=== PATIENT | male | born 1985 | race American Indian/Alaskan Native ===

== ENCOUNTER 2017-08-20 00:37 | Inpatient (IN) | payer MEDICARE ==
--- NOTE | 2017-08-20 01:46 | XRay Report ---
FINAL REPORT EXAM: XR CHEST ROUTINE 2V HISTORY: Shortness of breath COMPARISON: February 2016. FINDINGS:: Frontal and lateral views of the chest obtained. Heart mildly enlarged similar prior study. Patchy interstitial opacities at the left lung base concerning for asymmetric edema versus pneumonia. Mild prominence of the pulmonary vasculature centrally. No gross effusion or pneumothorax. Tiny calcified granuloma right upper lung. IMPRESSION:: Patchy interstitial densities at the left lung base concerning for asymmetric edema versus pneumonia.
[2017-08-20 02:16] LABS: Basophils % (Auto) 0.8 % (0.0-1.8); Hematocrit 29.1 % (35.5-45.6); Hemoglobin 9.6 gm/dl (11.8-15.2); Mean Corpuscular HGB Conc 33 % (32-34); Mean Corpuscular Hemoglobin 34 pg (28-32); Mean Corpuscular Volume 104 fl (84-94); Platelet Count 375 K/mm3 (140-440); White Blood Count 12.5 K/mm3 (4.5-11.0)
[2017-08-20 02:22] LABS: Chloride 91.5 mmol/L (98-107); Potassium 4.5 mmol/L (3.6-5.0)
--- NOTE | 2017-08-20 08:38 | Emergency Department Report ---
HPI - General Chief Complaint: Dyspnea/Respdistress Time Seen by Provider: 08/20/17 08:21 - HPI HPI: This is a 31-year-old -[place] male who presents to the emergency department with the need for dialysis. He says that he usually gets dialysis on Saturday, Saturday, Saturday and last had it here on Saturday. The lesion has been coming to the hospital for dialysis as he says he does not have a dialysis clinic. He says he is followed by Dr. foote. He has been end-stage renal disease on dialysis for the past 1.5 years. He has access in the right groin. He also has a past medical history of diabetes, hypertension. He denies any shortness of breath at rest but sometimes will have it at exertion. He denies any chest pain, fever, cough, nausea, vomiting. He has not taken anything for his symptoms prior to presentation. No recent travel or sick contacts at home. ED Past Medical Hx - Past Medical History Previous Medical History?: Yes Hx Hypertension: Yes Hx Congestive Heart Failure: No Hx Diabetes: Yes Hx Renal Disease: Yes Hx Kidney Stones: No Hx Psychiatric Treatment: Yes (Schizophrenic) Hx Asthma: No Hx COPD: No Hx HIV: No Additional medical history: Hemodialysis - Surgical History Past Surgical History?: Yes Additional Surgical History: knee surgery, tonsils removed, vas cath, graft in rt. leg - Social History Smoking Status: Never Smoker Substance Use Type: None - Medications Home Medications: Home Medications Medication Instructions Recorded Confirmed Last Taken Type Insulin Regular, Human [Novolin R] 12 - 30 units SC TIDWM #1 vial 08/20/17 Unknown Rx NIFEdipine XL [Procardia Xl] 60 mg PO QDAY #30 tablet 08/20/17 Unknown Rx Valsartan [Diovan] 320 mg PO QDAY #30 tablet 08/20/17 Unknown Rx ED Review of Systems ROS: Stated complaint: NEEDS DIALYSIS Other details as noted in HPI Comment: All other systems reviewed and negative Constitutional: denies: chills, fever Eyes: denies: eye pain, eye discharge, vision change ENT: denies: ear pain, throat pain Respiratory: SOB with exertion. denies: shortness of breath Cardiovascular: denies: chest pain, palpitations Gastrointestinal: denies: abdominal pain, nausea, diarrhea Genitourinary: denies: urgency, dysuria Musculoskeletal: denies: back pain, joint swelling, arthralgia Skin: denies: rash, lesions Neurological: denies: headache, weakness, paresthesias Physical Exam - Physical Exam Vital Signs: Vital Signs 08/20/17 08/20/17 00:48 01:17 Temperature 98.4 F 98.4 F Pulse Rate 116 H 117 H Respiratory 18 18 Rate Blood Pressure 182/114 182/114 O2 Sat by Pulse 100 99 Oximetry Physical Exam: GENERAL: The patient is well-developed well-nourished. HENT: Normocephalic. Atraumatic. Patient has moist mucous membranes. EYES: Extraocular motions are intact. Pupils equal reactive to light bilaterally. NECK: Supple. Trachea is midline. CHEST/LUNGS: Mild coarse breath sounds throughout the chest. No tachypnea or accessory muscle use. There is no respiratory distress noted. HEART/CARDIOVASCULAR: Regular. There is mild tachycardia. There is no gallop rub or murmur. ABDOMEN: Abdomen is soft, nontender. Patient has normal bowel sounds. There is no abdominal distention. SKIN: Skin is warm and dry. NEURO: The patient is awake, alert, and oriented. The patient is cooperative. The patient has no focal neurologic deficits. The patient has normal speech. MUSCULOSKELETAL: There is no tenderness or deformity. There is no limitation range of motion. There is no evidence of acute injury. 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 stover, who has agreed to come and evaluate the patient for dialysis. 08/20/17 08:37 ED Medical Decision Making - Lab Data Result diagrams: 08/20/17 01:44 08/20/17 01:44 - EKG Data -: EKG Interpreted by Co EKG shows normal: sinus rhythm, axis (left axis deviation), intervals ( prolonged QTC), QRS complexes (LVH), ST-T waves Rate: tachycardia (104 bpm) - EKG Data When compared to previous EKG there are: previous EKG unavailable Interpretation: other (sinus tachycardia, prolonged QTC, LVH) - Radiology Data Radiology results: report reviewed EXAM: XR CHEST ROUTINE 2V HISTORY: Shortness of breath COMPARISON: February 2016. FINDINGS:: Frontal and lateral views of the chest obtained. Heart mildly enlarged similar prior study. Patchy interstitial opacities at the left lung base concerning for asymmetric edema versus pneumonia. Mild prominence of the pulmonary vasculature centrally. No gross effusion or pneumothorax. Tiny calcified granuloma right upper lung. IMPRESSION:: Patchy interstitial densities at the left lung base concerning for asymmetric edema versus pneumonia. - Medical Decision Making The patient presented for dialysis. He does appear to require it with some elevated BUN/creatinine and creatinine levels but there is no hyperkalemia. Chest x-ray does not show any significant volume overload. Nephrology was contacted and agrees to do dialysis. The patient was admitted to the hospitalist service. - Differential Diagnosis CHF, hyperkalemia, asthma, pneumonia Critical Care Time: No Critical care attestation.: If time is entered above; I have spent that time in minutes in the direct care of this critically ill patient, excluding procedure time. ED Disposition Clinical Impression: Hypertensive urgency, End-stage renal disease needing dialysis Disposition: OP ADMIT IP TO THIS HOSP Is pt being admited?: Yes Condition: Stable Time of Disposition: 14:24
[2017-08-20] MEDS ORDERED: NACL 0.9% 100 ML IV PRN (09:14)
--- NOTE | 2017-08-20 09:14 | Consultation ---
History of Present Illness - Reason for Consult Consult date: 08/20/17 end stage renal disease, other (volume overload) - History of Present Illness The patient is a 31 YO AAM with history significant for HTN, Type 1 DM, Diastolic CHF(EF 55%), ESRD on HD(M,W,F), Anemia, Schizophrenia and medical non- compliance presented to ED for hemodialysis treatment. Patient had multiple admissions at [facility] for hemodialysis treatment. He was last dialyzed on 08/16/17 in the hospital. He has some shortness of breath. His regular outpatient hemodialysis center is at [facility] in [place] and his primary [facility] [employer] [facility] is . Inspite of counseling multiple times he doesn't want to go to the outpatient dialysis unit. He wants to switch to PD and has an appt with tomorrow. Patient denies any N, V, D, abd pain, cp , orthopnea, PND or leg swelling. Past History Past Medical History: anemia, diabetes, dialysis, ESRD, heart failure, hypertension Medications and Allergies Allergies Allergy/AdvReac Type Severity Reaction Status Date / Time Penicillins Allergy Unknown Verified 08/08/17 07:32 Home Medications Medication Instructions Recorded Confirmed Last Taken Type Insulin Regular, Human [Novolin R] 12 - 30 units SC TIDWM 08/02/17 08/20/17 1 Day Ago History Metoprolol [Lopressor TAB] 50 mg PO BID 08/02/17 08/20/17 1 Day Ago History hydrALAZINE [Apresoline TAB] 100 mg PO BID 08/02/17 08/20/17 1 Day Ago History Review of Systems Constitutional: weight gain, no weight loss, no fever, no chills, no anorexia, no fatigue, no weakness, no poor appetite Ears, nose, mouth and throat: no epistaxis Cardiovascular: orthopnea, edema, shortness of breath, high blood pressure, leg edema, no chest pain, no palpitations, no rapid/irregular heart beat, no syncope , no lightheadedness Respiratory: shortness of breath, dyspnea on exertion, no cough, no hemoptysis, no home oxygen Gastrointestinal: no abdominal pain, no nausea, no vomiting, no diarrhea, no melena, no jaundice Genitourinary Male: no dysuria, no hematuria Rectal: no bleeding Musculoskeletal: no redness of joints Integumentary: no redness, no sores, no jaundice Neurological: no paralysis, no weakness, no seizures, no syncope, no headaches, no convulsions, no aphasia, no change in speech, no change in mentation, no confusion, no double vision, no loss of vision Psychiatric: no disorientation Endocrine: weight change Hematologic/Lymphatic: no easy bleeding Exam - Vital Signs Vital signs: Vital Signs Temp Pulse Resp BP Pulse Ox 98.4 F 116 H 18 182/114 100 08/20/17 00:48 08/20/17 00:48 08/20/17 00:48 08/20/17 00:48 08/20/17 00:48 - General Appearance General appearance: well-developed, well-nourished, appears stated age, other ( no distress) EENT: ATNC, PERRL, mucous membranes moist, hearing intact, vision intact Neck: Present: neck supple, trachea midline Respiratory: Clear to Ascultation Heart: regular, S1S2, no murmurs Gastrointestinal: Present: normoactive bowel sounds. Absent: tenderness, distended Integumentary: no rash, warm and dry Neurologic: no focal deficit, no asterixis, alert and oriented x3 Musculoskeletal: Present: other (trace pedal edema, right thigh AVG) Results - Lab Results 08/20/17 01:44 08/20/17 01:44 Most recent lab results Calcium 7.0 mg/dL (8.4-10.2) L 08/20/17 01:44 Assessment and Plan 1. ESRD: HD today, orders placed. Patient was advised to report to his outpatient hemodialysis unit upon discharge. 2. Volume overload: UF with dialysis as tolerated. 3. Anemia: Epogen when BP is better. 4. Hypertension: Continue home meds. 5. DM: Monitor blood sugar. 6. Medical non-compliance: Compliance encouraged.
[2017-08-20] MEDS ORDERED: DULCOLAX PR PRN (09:23)
[2017-08-20] MEDS ORDERED: TYLENOL PO PRN (09:23)
[2017-08-20] MEDS ORDERED: ZOFRAN IV PRN (09:24)
--- NOTE | 2017-08-20 09:26 | Progress Note ---
Hospitalist Physical - Constitutional Vitals: Temp Pulse Resp BP Pulse Ox 98.4 F 117 H 18 182/114 99 08/20/17 01:17 08/20/17 01:17 08/20/17 01:17 08/20/17 01:17 08/20/17 01:17 Results - Labs CBC & Chem 7: 08/20/17 01:44 08/20/17 01:44 Labs: Laboratory Last Values WBC 12.5 K/mm3 (4.5-11.0) H 08/20/17 01:44 RBC 2.80 M/mm3 (3.65-5.03) L 08/20/17 01:44 Hgb 9.6 gm/dl (11.8-15.2) L 08/20/17 01:44 Hct 29.1 % (35.5-45.6) L 08/20/17 01:44 MCV 104 fl (84-94) H 08/20/17 01:44 MCH 34 pg (28-32) H 08/20/17 01:44 MCHC 33 % (32-34) 08/20/17 01:44 RDW 17.0 % (13.2-15.2) H 08/20/17 01:44 Plt Count 375 K/mm3 (140-440) 08/20/17 01:44 Lymph % (Auto) 11.8 % (13.4-35.0) L 08/20/17 01:44 [place] % (Auto) 8.1 % (0.0-7.3) H 08/20/17 01:44 Eos % (Auto) 3.0 % (0.0-4.3) 08/20/17 01:44 Baso % (Auto) 0.8 % (0.0-1.8) 08/20/17 01:44 Lymph # 1.5 K/mm3 (1.2-5.4) 08/20/17 01:44 [place] # 1.0 K/mm3 (0.0-0.8) H 08/20/17 01:44 Eos # 0.4 K/mm3 (0.0-0.4) 08/20/17 01:44 Baso # 0.1 K/mm3 (0.0-0.1) 08/20/17 01:44 Seg Neutrophils % 76.3 % (40.0-70.0) H 08/20/17 01:44 Seg Neutrophils # 9.5 K/mm3 (1.8-7.7) H 08/20/17 01:44 Sodium 135 mmol/L (137-145) L 08/20/17 01:44 Potassium 4.5 mmol/L (3.6-5.0) 08/20/17 01:44 Chloride 91.5 mmol/L (98-107) L 08/20/17 01:44 Carbon Dioxide 18 mmol/L (22-30) L 08/20/17 01:44 Anion Gap 30 mmol/L 08/20/17 01:44 BUN 80 mg/dL (9-20) H 08/20/17 01:44 Creatinine 13.1 mg/dL (0.8-1.5) H 08/20/17 01:44 Estimated GFR 5 ml/min 08/20/17 01:44 BUN/Creatinine Ratio 6 % 08/20/17 01:44 Glucose 103 mg/dL (75-100) H 08/20/17 01:44 Calcium 7.0 mg/dL (8.4-10.2) L 08/20/17 01:44
[2017-08-20] MEDS ORDERED: LOPRESSOR PO SCH (10:00)
[2017-08-20] MEDS ORDERED: HEPARIN SUB-Q SCH (10:00)
[2017-08-20] MEDS ORDERED: APRESOLINE PO SCH (10:00)
--- NOTE | 2017-08-20 10:08 | History and Physical Report ---
History of Present Illness Date of examination: 08/20/17 Date of admission: 08/20/17 09:23 Chief complaint: Needing hemodialysis History of present illness: Patient is a 31 years old male with past medical history of hypertension, insulin-dependent diabetes, Diastolic CHF(EF 55%), end-stage renal disease on HD(M,W,F), Anemia, Schizophrenia and medical non-compliance presented to Emergency department with the complaint of the need for dialysis and dyspnea on exertion. He has been end-stage renal disease on dialysis for the past 1.5 years. Patient states that unable to receive hemodialysis because he does not have dialysis center; he has hemodialysis center at chair at [facility] in [place] and followed by but patient didn't like his outpatient dialysis unit and he is keep coming to the ER for hemodialysis treatment for the last 3 weeks. Patient was advised by Dr. foote to continue treatment at [facility] in [place] until he can be transferred to another center but still resistance. Per Nepherlogy they couldn't find him a dialysis unit that accept him so far. The patient was last dialyzed 4 days ago on 08/16/2017 and missed yesterday so he presents to ER for hemodialysis treatment today. Patient also complains dyspnea on exertion. He denies fevers, chills, chest pain, nausea, vomiting, abdominal pain, orthopnea, PND or leg swelling. Past History Past Medical History: anemia, diabetes (Type 1 DM, ), ESRD (MWF), heart failure (Diastolic CHF(EF 55%)), hypertension, other (Schizophrenia and medical non- compliance ) Past Surgical History: Other (Right groin dialysis access ) Social history: denies: smoking, alcohol abuse Family history: hypertension Medications and Allergies Allergies Allergy/AdvReac Type Severity Reaction Status Date / Time Penicillins Allergy Unknown Verified 08/08/17 07:32 Home Medications Medication Instructions Recorded Confirmed Last Taken Type Insulin Regular, Human [Novolin R] 12 - 30 units SC TIDWM #1 vial 08/20/17 Unknown Rx NIFEdipine XL [Procardia Xl] 60 mg PO QDAY #30 tablet 08/20/17 Unknown Rx Valsartan [Diovan] 320 mg PO QDAY #30 tablet 08/20/17 Unknown Rx Active Meds: Active Medications Acetaminophen (Tylenol) 650 mg PO Q4H PRN PRN Reason: Pain MILD(1-3)/Fever >100.5/RUANO Bisacodyl (Dulcolax) 10 mg IN QDAY PRN PRN Reason: Constipation unrelieved by MOM Heparin Sodium (Porcine) (Heparin) 5,000 unit SUB-Q Q12HR SOFYA Hydralazine HCl (Apresoline) 100 mg PO BID SOFYA Sodium Chloride (Nacl 0.9%) 100 mls @ 999 mls/hr IV PALOMO PRN PRN Reason: Hypotension Metoprolol Tartrate (Lopressor) 50 mg PO BID SOFYA Ondansetron HCl (Zofran) 4 mg IV Q4H PRN PRN Reason: Nausea And Vomiting Review of Systems Constitutional: no weight loss, no weight gain, no fever, no chills Ears, nose, mouth and throat: no ear discharge, no tinnitis, no decreased hearing, no nose pain, no nasal congestion Cardiovascular: dyspnea on exertion, no orthopnea, no palpitations, no rapid/ irregular heart beat, no edema, no syncope Respiratory: dyspnea on exertion, no cough, no cough with sputum Gastrointestinal: no diarrhea, no constipation Genitourinary Male: no urinary frequency, no urinary hesitancy, no incontinence Rectal: no incontinence, no bleeding Musculoskeletal: no shooting arm pain, no arm numbness/tingling, no shooting leg pain Integumentary: no redness, no sores, no wounds, no jaundice Neurological: no paralysis, no parathesias, no numbness, no tingling Psychiatric: no change in sleep habits, no sleep disturbances, no insomnia, no hypersomnia Endocrine: no polyphagia, no excessive thirst, no polydipsia Hematologic/Lymphatic: no easy bruising, no easy bleeding Allergic/Immunologic: no urticaria, no allergic rhinitis Exam - Constitutional Vitals: Temp Pulse Resp BP Pulse Ox 98.4 F 117 H 18 182/114 99 08/20/17 01:17 08/20/17 01:17 08/20/17 01:17 08/20/17 01:17 08/20/17 01:17 General appearance: Present: no acute distress - EENT Eyes: Present: PERRL ENT: hearing intact, other (Right groin dialysis access) - Neck Neck: Present: supple - Respiratory Respiratory: bilateral: CTA - Cardiovascular Rhythm: regular Heart Sounds: Present: S1 & S2 - Extremities Extremity abnormal: other - Abdominal General gastrointestinal: Present: soft, non-tender Male genitourinary: Present: deferred - Rectal Rectal Exam: deferred - Integumentary Integumentary: Present: clear, warm, dry - Musculoskeletal Musculoskeletal: strength equal bilaterally - Psychiatric Psychiatric: appropriate mood/affect - Neurologic Neurologic: moves all extremities - Allied Health Allied health notes reviewed: nursing Results - Labs CBC & Chem 7: 08/20/17 01:44 08/20/17 01:44 Labs: Laboratory Last Values WBC 12.5 K/mm3 (4.5-11.0) H 08/20/17 01:44 RBC 2.80 M/mm3 (3.65-5.03) L 08/20/17 01:44 Hgb 9.6 gm/dl (11.8-15.2) L 08/20/17 01:44 Hct 29.1 % (35.5-45.6) L 08/20/17 01:44 MCV 104 fl (84-94) H 08/20/17 01:44 MCH 34 pg (28-32) H 08/20/17 01:44 MCHC 33 % (32-34) 08/20/17 01:44 RDW 17.0 % (13.2-15.2) H 08/20/17 01:44 Plt Count 375 K/mm3 (140-440) 08/20/17 01:44 Lymph % (Auto) 11.8 % (13.4-35.0) L 08/20/17 01:44 [place] % (Auto) 8.1 % (0.0-7.3) H 08/20/17 01:44 Eos % (Auto) 3.0 % (0.0-4.3) 08/20/17 01:44 Baso % (Auto) 0.8 % (0.0-1.8) 08/20/17 01:44 Lymph # 1.5 K/mm3 (1.2-5.4) 08/20/17 01:44 [place] # 1.0 K/mm3 (0.0-0.8) H 08/20/17 01:44 Eos # 0.4 K/mm3 (0.0-0.4) 08/20/17 01:44 Baso # 0.1 K/mm3 (0.0-0.1) 08/20/17 01:44 Seg Neutrophils % 76.3 % (40.0-70.0) H 08/20/17 01:44 Seg Neutrophils # 9.5 K/mm3 (1.8-7.7) H 08/20/17 01:44 Sodium 135 mmol/L (137-145) L 08/20/17 01:44 Potassium 4.5 mmol/L (3.6-5.0) 08/20/17 01:44 Chloride 91.5 mmol/L (98-107) L 08/20/17 01:44 Carbon Dioxide 18 mmol/L (22-30) L 08/20/17 01:44 Anion Gap 30 mmol/L 08/20/17 01:44 BUN 80 mg/dL (9-20) H 08/20/17 01:44 Creatinine 13.1 mg/dL (0.8-1.5) H 08/20/17 01:44 Estimated GFR 5 ml/min 08/20/17 01:44 BUN/Creatinine Ratio 6 % 08/20/17 01:44 Glucose 103 mg/dL (75-100) H 08/20/17 01:44 Calcium 7.0 mg/dL (8.4-10.2) L 08/20/17 01:44 - Imaging and Cardiology Chest x-ray: image reviewed (Pulmonary edema ) Assessment and Plan Assessment and plan: Patient is a 31 years old male with past medical history of hypertension, insulin-dependent diabetes, Diastolic CHF(EF 55%), end-stage renal disease on HD(M,W,F), Anemia, Schizophrenia and medical non-compliance presented to Emergency department with the complaint of the need for dialysis and dyspnea on exertion. He has been end-stage renal disease on dialysis for the past 1.5 years. Patient states that unable to receive hemodialysis because he does not have dialysis center; he has hemodialysis center at [facility] in [place] and followed by but patient didn't like his outpatient dialysis unit and he is keep coming to the ER for hemodialysis treatment for the last 3 weeks. End Stage Renal Disease Nephrology following Volume Overload Patient will have emergent hemodialysis Hypertensive urgency Optimized home antihypertensive medications Closely monitor blood pressure Diabetes mellitus Accu-Chek before meals and at bedtime Sliding scale insulin/NovoLog ADA carbohydrate consistent diet Chronic anemia H&H stable for patient at this point; no blood transfusions needed Closely monitor H&H Mild hyponatremia Most likely fluid dilution Closely monitor electrolytes Noncompliance Patient noncompliance with dialysis. counseling done DVT prophylaxis Heparin Advance Directives: Yes VTE prophylaxis?: Chemical Contraindication Mechanical VTE Prophylaxis: Treatment Not Indicated Plan of care discussed with patient/family: Yes
[2017-08-20 13:46] VITALS: BP 190/118
--- NOTE | 2017-08-20 13:54 | Discharge Summary ---
Providers - Providers Date of Admission: 08/20/17 09:23 Date of discharge: 08/20/17 Attending physician: BARBARA LONG MD Primary care physician: COCONUT JELLY ROLLER Hospitalization Condition: Stable Hospital course: Patient is a 31 years old male with past medical history of hypertension, insulin-dependent diabetes, Diastolic CHF(EF 55%), end-stage renal disease on HD(M,W,F), Anemia, Schizophrenia and medical non-compliance presented to Emergency department with the complaint of the need for dialysis and dyspnea on exertion. He has been end-stage renal disease on dialysis for the past 1.5 years. Patient states that unable to receive hemodialysis because he does not have dialysis center; he has hemodialysis center at chair at [facility] in [place] and followed by but patient didn't like his outpatient dialysis unit and he is keep coming to the ER for hemodialysis treatment for the last 3 weeks. Patient was advised by Dr. foote to continue treatment at [facility] in [place] until he can be transferred to another center but still resistance. Per Nepherlogy they couldn't find him a dialysis unit that accept him. Patient is noncompliance with renal dialysis. He received emergent dialysis , during which excess fluid was removed,we optimized home antihypertensive medications, which he had been poorly compliant with. He was counseled about non compliance and he agreed that he will have HD and that he would start taking his meds faithfully. Patient clinically improved. Patient advised to follow up with Nephrology. Discharge Diagnosed End Stage Renal Disease Volume Overload due to ESRD Hypertensive urgency Diabetes mellitus Chronic anemia Mild hyponatremia Noncompliance Disposition: TO HOME OR SELFCARE Core Measure Documentation - Palliative Care Palliative Care/ Comfort Measures: Not Applicable - Core Measures Any of the following diagnoses?: none Exam - Constitutional Vitals: Temp Pulse Resp BP Pulse Ox 97.7 F 115 H 16 190/118 99 08/20/17 13:36 08/20/17 13:36 08/20/17 13:36 08/20/17 13:36 08/20/17 01:17 General appearance: Present: no acute distress - EENT Eyes: Present: PERRL ENT: hearing intact - Neck Neck: Present: supple - Respiratory Respiratory effort: normal Respiratory: bilateral: CTA - Cardiovascular Rhythm: regular Heart Sounds: Present: S1 & S2 - Abdominal General gastrointestinal: Present: soft, non-tender Male genitourinary: Present: deferred - Rectal Rectal Exam: deferred - Integumentary Integumentary: Present: clear, warm, dry - Musculoskeletal Musculoskeletal: strength equal bilaterally - Psychiatric Psychiatric: appropriate mood/affect - Neurologic Neurologic: moves all extremities - Allied Health Allied health notes reviewed: nursing Plan Follow up with: PRIMARY CAREMD [Primary Care Provider] - 3-5 Days RAJAN PENA MD [Staff Physician] - 7 Days Prescriptions: Insulin Regular, Human [Novolin R] 12 - 30 units SC TIDWM #1 vial NIFEdipine XL [Procardia Xl] 60 mg PO QDAY #30 tablet Valsartan [Diovan] 320 mg PO QDAY #30 tablet
[2017-08-20] MEDS ORDERED: APRESOLINE PO ONE (14:10)
[2017-08-20] MEDS ORDERED: NACL 0.9% 1000 ML 1,000 ML ONE (15:01)
[2017-08-20] MEDS ORDERED: DDAVP 20 MCG in NACL 0.9% 50 ML IV STA (15:19)
--- NOTE | 2017-08-22 16:32 | Event Note ---
Discharge note Patient developed bleeding in a-V graft in his right groin. We were applying pressure to it and placing a saline bag on it, and he was planned for vascular surgery evaluation and for repeat CBC. However patient pulled out his lines and walked out of the hospital, patient eloped
== END 2017-08-20 15:45 | disposition left against medical advice (07) | DRG 640 ==
LOC: ED 00:37 → 3A 09:23
PROVIDERS: ADMIT Internal Medicine; ATTEND Internal Medicine
PROC: 5A1D70Z Performance of Urinary Filtration, Intermittent, Less than 6 Hours Per Day (ICD-10-PCS; principal; 2017-08-20)
DX: E87.79 Other fluid overload (principal); N18.6 End stage renal disease; I50.30 Unspecified diastolic (congestive) heart failure; I13.2 Hypertensive heart and chronic kidney disease with heart failure and with stage 5 chronic kidney disease, or end stage renal disease; I16.0 Hypertensive urgency; E87.1 Hypo-osmolality and hyponatremia; D64.9 Anemia, unspecified; E10.22 Type 1 diabetes mellitus with diabetic chronic kidney disease; F20.9 Schizophrenia, unspecified; Z88.0 Allergy status to penicillin; Z99.2 Dependence on renal dialysis; Z82.49 Family history of ischemic heart disease and other diseases of the circulatory system; Z91.15 Patient's noncompliance with renal dialysis
CPT/HCPCS: 36415; 71020; 80048; 85025; 93005; 93010; J2597; J7030

== ENCOUNTER 2017-08-23 02:57 | Inpatient (IN) | payer MEDICARE ==
[2017-08-23 03:26] LABS: Hematocrit 22.9 % (35.5-45.6); Hemoglobin 7.6 gm/dl (11.8-15.2); Mean Corpuscular HGB Conc 33 % (32-34); Mean Corpuscular Hemoglobin 33 pg (28-32); Mean Corpuscular Volume 100 fl (84-94); Platelet Count 441 K/mm3 (140-440); Red Blood Count 2.29 M/mm3 (3.65-5.03); Red Cell Distribution Width 15.9 % (13.2-15.2)
[2017-08-23 03:27] LABS: White Blood Count 21.2 K/mm3 (4.5-11.0)
[2017-08-23 03:49] LABS: Calcium 6.4 mg/dL (8.4-10.2); Potassium 4.1 mmol/L (3.6-5.0)
[2017-08-23 07:02] LABS: Anisocytosis 1+; Basophils % (Manual) 0 % (0.0-1.8); Blastocytes % (Manual) 0 %; Eosinophils % (Manual) 0 % (0.0-4.3); Hypochromasia 1+
[2017-08-23 07:03] LABS: Diff Status Complete; Polychromasia Few
--- NOTE | 2017-08-23 10:52 | XRay Report ---
PORTABLE CHEST: Hypertension. An AP portable view of the chest demonstrates a normal cardiac contour considering the limits of this technique. The lungs are clear with no evidence of infiltrate, fluid or failure. IMPRESSION: Normal portable chest.
[2017-08-23] MEDS ORDERED: VANCOMYCIN 1,250 MG in NACL 0.9% 250ML 250 ML IV ONE (12:15)
--- NOTE | 2017-08-23 12:52 | Emergency Department Report ---
ED General Adult HPI - General Chief complaint: Nausea/Vomiting/Diarrhea Stated complaint: N/V NEEDS DIALYSIS Time Seen by Provider: 08/23/17 10:18 Source: patient Mode of arrival: Ambulatory Limitations: No Limitations - History of Present Illness Initial comments: Patient is a well-known individual to this facility. He carries a diagnosis of schizophrenia. However, I do not see that he is on medication. He is noted to be noncompliant with dialysis. He sometimes has refused dialysis because it "involves needles". He states to me that he still has peritoneal dialysis catheter placement pending but not until "after ". He is being managed by Dr. Granados for his dialysis. He tells me today that he is not sure when his last dialysis was but he thinks it might have been Saturday. Yesterday he states he went to [facility] and he had protracted vomiting. He states he has not been able to eat anything due to nausea. He has felt like he "has an infection" but has not taken his temperature. He denies diarrhea. He also denies cough or sore throat or any other apparent focus of infection such as a sore or infected toe. He has a history of diabetes. His vascath has already been removed. Patient states last transfusion was in July at [facility]. -: Gradual (no complaint of pain) Consistency: now resolved Improves with: none Worsens with: none Associated Symptoms: denies other symptoms Treatments Prior to Arrival: none - Related Data Previous Rx's Medication Instructions Recorded Last Taken Type Insulin Regular, Human [Novolin R] 12 - 30 units SC TIDWM #1 vial 08/20/17 Unknown Rx NIFEdipine XL [Procardia Xl] 60 mg PO QDAY #30 tablet 08/20/17 Unknown Rx Valsartan [Diovan] 320 mg PO QDAY #30 tablet 08/20/17 Unknown Rx Allergies Allergy/AdvReac Type Severity Reaction Status Date / Time Penicillins Allergy Unknown Verified 08/08/17 07:32 ED Review of Systems ROS: Stated complaint: N/V NEEDS DIALYSIS Other details as noted in HPI Constitutional: malaise. denies: chills, fever Eyes: denies: eye pain, eye discharge, vision change ENT: denies: ear pain, throat pain Respiratory: denies: cough, shortness of breath, wheezing Cardiovascular: denies: chest pain, palpitations Endocrine: no symptoms reported Gastrointestinal: nausea, vomiting. denies: abdominal pain, diarrhea Genitourinary: denies: urgency, dysuria Musculoskeletal: denies: back pain, joint swelling, arthralgia Skin: denies: rash, lesions Neurological: denies: headache, weakness, paresthesias Psychiatric: denies: anxiety, depression Hematological/Lymphatic: denies: easy bleeding, easy bruising ED Past Medical Hx - Past Medical History Hx Hypertension: Yes Hx Congestive Heart Failure: No Hx Diabetes: Yes Hx Renal Disease: Yes (CKD) Hx Kidney Stones: No Hx Psychiatric Treatment: Yes (Schizophrenic) Hx Asthma: No Hx COPD: No Hx HIV: No Additional medical history: Hemodialysis - Surgical History Additional Surgical History: knee surgery, tonsils removed, vas cath, graft in rt. leg - Social History Smoking Status: Never Smoker Substance Use Type: None - Medications Home Medications: Home Medications Medication Instructions Recorded Confirmed Last Taken Type Insulin Regular, Human [Novolin R] 12 - 30 units SC TIDWM #1 vial 08/20/17 Unknown Rx NIFEdipine XL [Procardia Xl] 60 mg PO QDAY #30 tablet 08/20/17 Unknown Rx Valsartan [Diovan] 320 mg PO QDAY #30 tablet 08/20/17 Unknown Rx ED Physical Exam - General Limitations: No Limitations General appearance: alert, in no apparent distress - Head Head exam: Present: atraumatic, normocephalic - Eye Eye exam: Present: normal appearance - ENT ENT exam: Present: mucous membranes moist - Neck Neck exam: Present: normal inspection - Respiratory Respiratory exam: Present: normal lung sounds bilaterally. Absent: respiratory distress - Cardiovascular Cardiovascular Exam: Present: regular rate, normal rhythm. Absent: systolic murmur, diastolic murmur, rubs, gallop - GI/Abdominal GI/Abdominal exam: Present: soft, normal bowel sounds. Absent: distended, tenderness, guarding, rebound, rigid - Rectal Rectal exam: Present: deferred - Extremities Exam Extremities exam: Present: normal inspection - Back Exam Back exam: Present: normal inspection - Neurological Exam Neurological exam: Present: alert, oriented X3, CN II-XII intact. Absent: motor sensory deficit - Psychiatric Psychiatric exam: Present: normal affect, normal mood - Skin Skin exam: Present: warm, dry, intact, normal color. Absent: rash ED Course Vital Signs 08/23/17 03:03 Temperature 98 F Pulse Rate 109 H Blood Pressure 171/104 O2 Sat by Pulse 100 Oximetry - Reevaluation(s) Reevaluation #1: The patient is admitted by Dr. Grover with consultation to Dr. Granados. He was treated with empiric antibiotics meropenem and vancomycin. 08/23/17 13:15 ED Medical Decision Making - Lab Data Result diagrams: 08/23/17 03:15 08/23/17 03:15 Laboratory Results - last 24 hr 08/23/17 08/23/17 08/23/17 03:15 03:15 03:15 WBC 21.2 H RBC 2.29 L Hgb 7.6 L Hct 22.9 L MCV 100 H MCH 33 H MCHC 33 RDW 15.9 H Plt Count 441 H Add Manual Diff Complete Total Counted 100 Seg Neuts % (Manual) 75.0 H Band Neutrophils % 3.0 Lymphocytes % (Manual) 14.0 Reactive Lymphs % (Man) 0 Monocytes % (Manual) 8.0 H Eosinophils % (Manual) 0 Basophils % (Manual) 0 Metamyelocytes % 0 Myelocytes % 0 Promyelocytes % 0 Blast Cells % 0 Nucleated RBC % 5.0 H Seg Neutrophils # Man 15.9 H Band Neutrophils # 0.6 Lymphocytes # (Manual) 3.0 Abs React Lymphs (Man) 0.0 Monocytes # (Manual) 1.7 H Eosinophils # (Manual) 0.0 Basophils # (Manual) 0.0 Metamyelocytes # 0.0 Myelocytes # 0.0 Promyelocytes # 0.0 Blast Cells # 0.0 WBC Morphology Not Reportable Hypersegmented Neuts Not Reportable Hyposegmented Neuts Not Reportable Hypogranular Neuts Not Reportable Smudge Cells Not Reportable Toxic Granulation Not Reportable Toxic Vacuolation Not Reportable Dohle Bodies Not Reportable Pelger-Huet Anomaly Not Reportable Jose David Rods Not Reportable Platelet Estimate Appears normal Clumped Platelets Not Reportable Plt Clumps, EDTA Not Reportable Large Platelets Not Reportable Giant Platelets Not Reportable Platelet Satelliting Not Reportable Plt Morphology Comment Not Reportable RBC Morphology Not Reportable Dimorphic RBCs Not Reportable Polychromasia Few Hypochromasia 1+ Poikilocytosis Not Reportable Anisocytosis 1+ Microcytosis Not Reportable Macrocytosis Not Reportable Spherocytes Not Reportable Pappenheimer Bodies Not Reportable Sickle Cells Not Reportable Target Cells Not Reportable Tear Drop Cells Not Reportable Ovalocytes Not Reportable Helmet Cells Not Reportable Brown-Pentwater Bodies Not Reportable [place]aver [place] Rings Not Reportable Nardin Cells Not Reportable Bite Cells Not Reportable Crenated Cell Not Reportable Elliptocytes Not Reportable Acanthocytes (Spur) Not Reportable Rouleaux Not Reportable Hemoglobin C Crystals Not Reportable Schistocytes Not Reportable Malaria parasites Not Reportable Mac Bodies Not Reportable Hem Pathologist Commnt No Sodium 139 Potassium 4.1 Chloride 89.0 L Carbon Dioxide 20 L Anion Gap 34 BUN 103 H Creatinine 16.5 H Estimated GFR 4 BUN/Creatinine Ratio 6 Glucose 93 POC Glucose 106 H Calcium 6.4 L Critical Care Time: Yes Critical care time in (mins) excluding proc time.: 45 Critical care attestation.: If time is entered above; I have spent that time in minutes in the direct care of this critically ill patient, excluding procedure time. ED Disposition Clinical Impression: End-stage renal disease needing dialysis, Uremia Leukocytosis Qualifiers: Leukocytosis type: unspecified Qualified Code(s): D72.829 - Elevated white blood cell count, unspecified Anemia Qualifiers: Anemia type: due to chronic kidney disease Chronic kidney disease stage: on chronic dialysis Qualified Code(s): N18.6 - End stage renal disease Disposition: OP ADMIT IP TO THIS HOSP Is pt being admited?: Yes Does the pt Need Aspirin: Yes Condition: Stable Referrals: PRIMARY CARE, [Primary Care Provider] - 3-5 Days Time of Disposition: 13:22
[2017-08-23] MEDS ORDERED: MERREM 1,000 MG in NACL 0.9% 100 ML IV ONE (13:00)
[2017-08-23] MEDS ORDERED: VANCOMYCIN PHARMACY TO DOSE IV SCH (13:00)
[2017-08-23] MEDS ORDERED: BABY ASPIRIN PO ONE (13:23)
[2017-08-23] MEDS ORDERED: NACL 0.9% 100 ML IV PRN (13:23)
--- NOTE | 2017-08-23 13:23 | Consultation ---
History of Present Illness - Reason for Consult Consult date: 08/23/17 end stage renal disease, other (Anemia.) - History of Present Illness The patient is a 31 YO AAM with history significant for HTN, Type 1 DM, Diastolic CHF(EF 55%), ESRD on HD(M,W,F), Anemia, Schizophrenia and medical non- compliance presented to ED with intractable N 7 V since yesterday. He had about 7-8 episodes of non-bloody emesis since the symptoms started. He had one episode of diarrhea about 2 days ago. Patient denies any abd pain, fever, sick contact, rash, jaundice, leg swelling, SOB or weakness. Patient had multiple admissions at [facility] for hemodialysis treatment. He was last dialyzed on 08/20/17 in the hospital. His regular outpatient hemodialysis center is at [facility] in [place] and his primary [facility] is . Inspite of counseling multiple times he refused to go to the outpatient dialysis unit. Per patient he saw for possible PD catheter placement. Labs from today is significant for Hb 7.6 and WBC 21. He was given vancomycin and Meropenem. Past History Past Medical History: anemia, diabetes, dialysis, ESRD, hypertension Medications and Allergies Allergies Allergy/AdvReac Type Severity Reaction Status Date / Time Penicillins Allergy Unknown Verified 08/08/17 07:32 Home Medications Medication Instructions Recorded Confirmed Last Taken Type Insulin Regular, Human [Novolin R] 12 - 30 units SC TIDWM #1 vial 08/20/1708/23 Unknown Rx NIFEdipine XL [Procardia Xl] 60 mg PO QDAY #30 tablet 08/20/17 08/23/17 Unknown Rx Valsartan [Diovan] 320 mg PO QDAY #30 tablet 08/20/17 08/23/17 Unknown Rx Active Meds: Active Medications Meropenem 1,000 mg/ Sodium (Chloride) 100 mls @ 100 mls/hr IV ONCE.ED ONE Stop: 08/23/17 13:59 Vancomycin HCl 1,250 mg/ (Sodium Chloride) 262.5 mls @ 131.25 mls/hr IV ONCE.ED ONE Stop: 08/23/17 14:14 Vancomycin HCl (Vancomycin Pharmacy To Dose) 1 each IV PKCONSULT SOFYA PRN Reason: Protocol Review of Systems Constitutional: no weight loss, no weight gain, no fever, no chills, no anorexia , no weakness, no poor appetite Ears, nose, mouth and throat: no epistaxis Cardiovascular: dyspnea on exertion, high blood pressure, no chest pain, no orthopnea, no edema, no syncope, no lightheadedness, no shortness of breath, no leg edema Respiratory: dyspnea on exertion, no cough, no shortness of breath, no home oxygen Gastrointestinal: nausea, vomiting, diarrhea, no abdominal pain, no hematemesis , no melena, no jaundice Genitourinary Male: no dysuria, no hematuria Rectal: no bleeding Musculoskeletal: no redness of joints Integumentary: no rash, no wounds, no jaundice Neurological: no paralysis, no weakness, no syncope, no convulsions, no aphasia , no paralysis Psychiatric: no disorientation Endocrine: no weight change Hematologic/Lymphatic: no easy bleeding Exam - Vital Signs Vital signs: Vital Signs Temp Pulse BP Pulse Ox 98 F 109 H 171/104 100 08/23/17 03:03 08/23/17 03:03 08/23/17 03:03 08/23/17 03:03 - General Appearance General appearance: well-developed, well-nourished, appears stated age, other ( no distress) EENT: ATNC, PERRL, hearing intact, vision intact Neck: Present: neck supple, trachea midline Respiratory: Clear to Ascultation Heart: regular, S1S2, no murmurs Gastrointestinal: Present: normoactive bowel sounds. Absent: tenderness, distended Integumentary: no rash Neurologic: no focal deficit, no asterixis, alert and oriented x3 Musculoskeletal: Present: other (no edema, right thigh AVG) Results - Lab Results 08/23/17 03:15 08/23/17 03:15 Most recent lab results Calcium 6.4 mg/dL (8.4-10.2) L 08/23/17 03:15 Assessment and Plan 1. ESRD: HD today, orders placed. Will dilayze him on MWFs while in the hospital. 2. Anemia: Epogen today. PO Iron. 3. Sepsis: Started on Vancomycin and Meropenem. Recent h/o enterococcal bacteremia. 4. Hypertension: Continue home meds. 5. DM: Monitor blood sugar. 6. Medical non-compliance: Compliance encouraged.
[2017-08-23] MEDS ORDERED: ZOFRAN ODT PO ONE (13:24)
[2017-08-23 13:41] LABS: INR 1.31 (0.87-1.13)
[2017-08-23 13:42] LABS: Partial Thromboplastin Time 33.2 Sec. (24.2-36.6)
[2017-08-23 13:55] LABS: Alanine Aminotransferase 20 units/L (7-56); Albumin 3.5 g/dL (3.9-5); Albumin/Globulin Ratio 1.3 %; Alkaline Phosphatase 103 units/L (35-129); Lipase 29 units/L (13-60); Total Protein 6.1 g/dL (6.3-8.2)
[2017-08-23 13:59] LABS: Bilirubin,Direct < 0.2 mg/dL (0-0.2); Bilirubin,Indirect 0.1 mg/dL
--- NOTE | 2017-08-23 14:29 | History and Physical Report ---
History of Present Illness Date of examination: 08/23/17 Date of admission: 08/23/17 13:24 Chief complaint: SOB History of present illness: The patient is a 31 YO AAM with history significant for HTN, Type 1 DM, Diastolic CHF(EF 55%), ESRD on HD(M,W,F), Anemia, Schizophrenia and medical non- compliance presented to ED with intractable Nausea and Vomiting since yesterday. He had about 7-8 episodes of non-bloody emesis since the symptoms started. Patient denies any abd pain, cp, orthopnea, PND or leg swelling. . Patient was discharged from [facility] on 08/20/17. Patient has hemodialysis chair at [facility] in [place] and followed by . Patient states he did not have HD since discharge. Inspite of counseling multiple times he refused to go to the outpatient dialysis unit. In the ER his Hb was 7.6 and WBC 21. He was given vancomycin and Meropenem. he will be admitted for further evaluation and management. Past History Past Medical History: diabetes, dialysis, hypertension, renal failure, other ( Psych (Schizophrenia)) Past Surgical History: Other (knee surgery, tonsils removed, vas cath, graft in rt. leg) Social history: other (Never smoked, consumes alcohol) Family history: hypertension Medications and Allergies Allergies Allergy/AdvReac Type Severity Reaction Status Date / Time Penicillins Allergy Unknown Verified 08/08/17 07:32 Home Medications Medication Instructions Recorded Confirmed Last Taken Type Insulin Regular, Human [Novolin R] 12 - 30 units SC TIDWM #1 vial 08/20/1708/23 Unknown Rx NIFEdipine XL [Procardia Xl] 60 mg PO QDAY #30 tablet 08/20/17 08/23/17 Unknown Rx Valsartan [Diovan] 320 mg PO QDAY #30 tablet 08/20/17 08/23/17 Unknown Rx Active Meds: Active Medications Epoetin Jose (Epogen) 20,000 unit SUB-Q ONCE ONE Stop: 08/23/17 13:26 Sodium Chloride (Nacl 0.9%) 100 mls @ 999 mls/hr IV PALOMO PRN PRN Reason: Hypotension Insulin Detemir (Levemir) 10 units SUB-Q QHS SOFYA Insulin Human Regular (Novolin R) 0 units SUB-Q ACHS SOFYA PRN Reason: Protocol Miscellaneous Medication (Valsartan [Diovan]) 320 mg PO QDAY SOFYA Nifedipine (Procardia Xl) 60 mg PO QDAY SOFYA Vancomycin HCl (Vancomycin Pharmacy To Dose) 1 each IV PKCONSULT SOFYA PRN Reason: Protocol Review of Systems Constitutional: no weight loss, no fever, no chills Ears, nose, mouth and throat: no decreased hearing, no epistaxis Cardiovascular: no chest pain, no lightheadedness Respiratory: no cough with sputum, no wheezing Gastrointestinal: nausea, vomiting, no abdominal pain, no BRBPR Genitourinary Male: no dysuria Rectal: no incontinence Musculoskeletal: no neck stiffness Integumentary: no rash, no redness Neurological: no weakness, no numbness, no tingling Psychiatric: no anxiety, no memory loss Endocrine: no cold intolerance, no heat intolerance Hematologic/Lymphatic: no easy bruising, no easy bleeding Allergic/Immunologic: no urticaria, no wheezing Exam - Constitutional Vitals: Temp Pulse Resp BP Pulse Ox 98 F 109 H 171/104 100 08/23/17 03:03 08/23/17 03:03 08/23/17 03:03 08/23/17 03:03 General appearance: Present: no acute distress - EENT Eyes: Present: PERRL ENT: hearing intact, clear oral mucosa - Neck Neck: Present: supple, normal ROM - Respiratory Respiratory effort: normal Respiratory: bilateral: CTA - Cardiovascular Heart Sounds: Present: S1 & S2. Absent: rub, click - Extremities Extremities: pulses symmetrical, No edema Peripheral Pulses: within normal limits - Abdominal General gastrointestinal: Present: soft, non-tender, non-distended, normal bowel sounds - Integumentary Integumentary: Present: clear, warm, dry - Musculoskeletal Musculoskeletal: gait normal, strength equal bilaterally - Psychiatric Psychiatric: appropriate mood/affect, intact judgment & insight - Neurologic Neurologic: CNII-XII intact, moves all extremities Results - Labs CBC & Chem 7: 08/23/17 03:15 08/23/17 03:15 Labs: Abnormal lab results 08/23/17 08/23/17 08/23/17 Range/Units 03:15 03:15 03:15 WBC 21.2 H (4.5-11.0) K/mm3 RBC 2.29 L (3.65-5.03) M/mm3 Hgb 7.6 L (11.8-15.2) gm/dl Hct 22.9 L (35.5-45.6) % MCV 100 H (84-94) fl MCH 33 H (28-32) pg RDW 15.9 H (13.2-15.2) % Plt Count 441 H (140-440) K/mm3 Seg Neuts % (Manual) 75.0 H (40.0-70.0) % Monocytes % (Manual) 8.0 H (0.0-7.3) % Nucleated RBC % 5.0 H (0.0-0.9) % Seg Neutrophils # Man 15.9 H (1.8-7.7) K/mm3 Monocytes # (Manual) 1.7 H (0.0-0.8) K/mm3 PT (12.2-14.9) Sec. INR (0.87-1.13) Chloride 89.0 L (98-107) mmol/L Carbon Dioxide 20 L (22-30) mmol/L BUN 103 H (9-20) mg/dL Creatinine 16.5 H (0.8-1.5) mg/dL POC Glucose 106 H (70-105) Lactic Acid (0.7-2.0) mmol/L Calcium 6.4 L (8.4-10.2) mg/dL Phosphorus (2.5-4.5) mg/dL Total Protein (6.3-8.2) g/dL Albumin (3.9-5) g/dL 08/23/17 08/23/17 08/23/17 Range/Units Unknown Unknown Unknown WBC (4.5-11.0) K/mm3 RBC (3.65-5.03) M/mm3 Hgb (11.8-15.2) gm/dl Hct (35.5-45.6) % MCV (84-94) fl MCH (28-32) pg RDW (13.2-15.2) % Plt Count (140-440) K/mm3 Seg Neuts % (Manual) (40.0-70.0) % Monocytes % (Manual) (0.0-7.3) % Nucleated RBC % (0.0-0.9) % Seg Neutrophils # Man (1.8-7.7) K/mm3 Monocytes # (Manual) (0.0-0.8) K/mm3 PT 16.9 H (12.2-14.9) Sec. INR 1.31 H (0.87-1.13) Chloride (98-107) mmol/L Carbon Dioxide (22-30) mmol/L BUN (9-20) mg/dL Creatinine (0.8-1.5) mg/dL POC Glucose (70-105) Lactic Acid 3.10 H* (0.7-2.0) mmol/L Calcium (8.4-10.2) mg/dL Phosphorus 8.80 H (2.5-4.5) mg/dL Total Protein 6.1 L (6.3-8.2) g/dL Albumin 3.5 L (3.9-5) g/dL - Imaging and Cardiology EKG: report reviewed Chest x-ray: report reviewed (no infiltrates) Assessment and Plan Intractable N/V, likley gastroenteritis SIRS, with elevated white count, tachycardia ESRD on HD HTN, uncontrolled DM type 2 Non compliance - admit to tele, monitor BP - cont empiric abx with meropenem amd vancomycin - ordered rodgers cx, will follow - consulted nephrology - place on nausea meds as needed - ADA diet as tolerated ( No nausea/vomiting since admission), SSI coverage - heparin for DvT Px
[2017-08-23] MEDS ORDERED: NON-FORMULARY (Valsartan [Diovan] 320 MG) PO SCH (14:30)
[2017-08-23] MEDS ORDERED: PROCARDIA XL PO SCH (15:00)
[2017-08-23] MEDS ORDERED: ZOFRAN ODT ONE (15:22)
[2017-08-23] MEDS ORDERED: BABY ASPIRIN ONE (15:22)
[2017-08-23] MEDS ORDERED: DIOVAN PO SCH (16:00)
[2017-08-23] MEDS ORDERED: LEVEMIR SUB-Q SCH (22:00)
[2017-08-23 23:02] VITALS: BP 182/94
[2017-08-23] MEDS: MERREM/NS 500 MG/50 ML 500 MG/50 ML BAG IV SCH (23:30)
[2017-08-24] MEDS: MERREM/NS 500 MG/50 ML 500 MG/50 ML BAG IV SCH ×2 (00:09→05:59)
[2017-08-24] MEDS ORDERED: D50W (25GM) Vial 50 ML IV ONE (05:53)
[2017-08-24] MEDS ORDERED: D50W (25GM) Vial IV ONE (06:39)
--- NOTE | 2017-08-24 07:24 | Progress Note ---
Assessment and Plan 1. ESRD: Patient was dialyzed yesterday. Patient is planning to go to his outpatient hemodialysis unit for dialysis on . 2. Anemia: Epogen. 3. Sepsis: Started on Vancomycin and Meropenem. Recent h/o enterococcal bacteremia. 4. Hypertension: Continue home meds. 5. DM: Monitor blood sugar. 6. Medical non-compliance: Compliance encouraged. Subjective Date of service: 08/24/17 Interval history: Patient is feeling better today. Objective - Vital Signs Vital signs: Vital Signs - 12hr 08/23/17 22:38 Temperature 98.6 F Respiratory 16 Rate Blood Pressure 182/94 - General Appearance General appearance: well-developed, well-nourished, appears stated age, other ( no distress) EENT: ATNC, PERRL, hearing intact, vision intact Neck: supple Respiratory: Present: Clear to Ascultation Cardiology: regular, S1S2, no murmurs Gastrointestinal: normoactive bowel sounds, no tenderness, no distended Integumentary: no rash, warm and dry Neurologic: no focal deficit, no asterixis, alert and oriented x3, CN 3-12 intact Musculoskeletal: other (no edema, right thigh AVG) - Lab 08/23/17 03:15 08/23/17 03:15 Most recent lab results Calcium 6.4 mg/dL (8.4-10.2) L 08/23/17 03:15 Phosphorus 8.80 mg/dL (2.5-4.5) H 08/23/17 Unknown Magnesium 2.10 mg/dL (1.7-2.3) 08/23/17 Unknown
--- NOTE | 2017-08-24 11:28 | Event Note ---
Date: 08/24/17 Patient refused any lab, meds this morning. Counselled at bedside but he refused treatment and left AMA.
--- NOTE | 2017-08-24 11:29 | Discharge Summary ---
Providers - Providers Date of Admission: 08/23/17 13:24 Date of discharge: 08/24/17 Attending physician: MARICARMEN GARCIA 08/23/17 13:21 Consult to Physician [CONS] Urgent Consulting Provider: RAJAN PENA Reason For Exam: ESRD needs dialysis Notified:: yes 08/23/17 15:05 Consult to Physician [CONS] Routine Consulting Provider: Reason For Exam: graft infection Place consult to:: director of acquisitions ID Primary care physician: BIRD RAISER Hospitalization Condition: Stable Disposition: DC-[id number] LEFT AGAINST MED ADVICE Time spent for discharge: 25 minutes Core Measure Documentation - Palliative Care Palliative Care/ Comfort Measures: Not Applicable - Core Measures Any of the following diagnoses?: none Exam - Constitutional Vitals: Temp Pulse Resp BP Pulse Ox 98.6 F 102 H 16 182/94 100 08/23/17 22:38 08/23/17 19:20 08/23/17 22:38 08/23/17 22:38 08/23/17 15:51 General appearance: Present: no acute distress - EENT Eyes: Present: PERRL ENT: hearing intact, clear oral mucosa - Neck Neck: Present: supple, normal ROM - Respiratory Respiratory effort: normal Respiratory: bilateral: CTA - Cardiovascular Heart Sounds: Present: S1 & S2. Absent: rub, click - Extremities Extremities: pulses symmetrical, No edema Peripheral Pulses: within normal limits - Abdominal General gastrointestinal: Present: soft, non-tender, non-distended, normal bowel sounds - Integumentary Integumentary: Present: clear, warm, dry - Musculoskeletal Musculoskeletal: gait normal, strength equal bilaterally - Psychiatric Psychiatric: appropriate mood/affect, intact judgment & insight - Neurologic Neurologic: CNII-XII intact, moves all extremities Plan Activity: advance as tolerated Weight Bearing Status: Weight Bear as Tolerated Diet: diabetic, renal Follow up with: PRIMARY CARE, [Primary Care Provider] - 3-5 Days
== END 2017-08-24 10:00 | disposition left against medical advice (07) | DRG 871 ==
LOC: ED 02:57 → 4A 13:24 → 3A 19:22
PROVIDERS: ADMIT Internal Medicine; ATTEND Internal Medicine
PROC: 5A1D70Z Performance of Urinary Filtration, Intermittent, Less than 6 Hours Per Day (ICD-10-PCS; principal; 2017-08-23)
DX: A41.9 Sepsis, unspecified organism (principal); N18.6 End stage renal disease; I13.2 Hypertensive heart and chronic kidney disease with heart failure and with stage 5 chronic kidney disease, or end stage renal disease; I50.30 Unspecified diastolic (congestive) heart failure; Z99.2 Dependence on renal dialysis; D64.9 Anemia, unspecified; Z53.21 Procedure and treatment not carried out due to patient leaving prior to being seen by health care provider; E10.22 Type 1 diabetes mellitus with diabetic chronic kidney disease; F20.9 Schizophrenia, unspecified; Z91.19 Patient's noncompliance with other medical treatment and regimen; Z82.49 Family history of ischemic heart disease and other diseases of the circulatory system; Z88.0 Allergy status to penicillin; K52.9 Noninfective gastroenteritis and colitis, unspecified
CPT/HCPCS: 36415; 71010; 80048; 80074; 82140; 82962; 83690; 83735; 83880; 84100; 85007; 85025; 85610; 85730; 87040; J0885; J1818; J2185; J3370; J7050; Q0162

== ENCOUNTER 2017-09-16 16:16 | Emergency (ER) | payer MEDICARE ==
[2017-09-16 16:53] VITALS: BP 168/101
[2017-09-16 17:08] LABS: Basophils % (Auto) 0.9 % (0.0-1.8); Eosinophils % (Auto) 2.4 % (0.0-4.3); Hematocrit 27.3 % (35.5-45.6); Hemoglobin 8.5 gm/dl (11.8-15.2); Mean Corpuscular HGB Conc 31 % (32-34); Mean Corpuscular Hemoglobin 32 pg (28-32); Mean Corpuscular Volume 104 fl (84-94); Platelet Count 620 K/mm3 (140-440); Red Blood Count 2.63 M/mm3 (3.65-5.03); White Blood Count 17.4 K/mm3 (4.5-11.0)
[2017-09-16 17:26] LABS: Calcium 7.6 mg/dL (8.4-10.2); Chloride 90.3 mmol/L (98-107); Potassium 4.8 mmol/L (3.6-5.0)
--- NOTE | 2017-09-16 20:32 | XRay Report ---
FINAL REPORT EXAM: XR CHEST ROUTINE 2V HISTORY: Shortness of breath TECHNIQUE: Chest two views PRIORS: Comparison is dated August 20, 2017 FINDINGS: There is patchy increased opacity in the left lower lobe new since the prior exam. Cardiac and mediastinal contours are within normal limits. No pleural effusion identified. Pulmonary vasculature is unremarkable. IMPRESSION: Left lower lobe infiltrate suspicious for pneumonia
== END 2017-09-16 20:20 | disposition left against medical advice (07) ==
LOC: ED 16:16
DX: Z53.21 Procedure and treatment not carried out due to patient leaving prior to being seen by health care provider (principal)
CPT/HCPCS: 36415; 71020; 80048; 80061; 84484; 85025; 93005; 93010

== ENCOUNTER 2017-09-17 06:11 | Inpatient (IN) | payer MEDICARE ==
[2017-09-17 07:58] LABS: Basophils % (Auto) 0.8 % (0.0-1.8); Eosinophils % (Auto) 2.5 % (0.0-4.3); Hematocrit 27.5 % (35.5-45.6); Hemoglobin 8.8 gm/dl (11.8-15.2); Mean Corpuscular HGB Conc 32 % (32-34); Mean Corpuscular Hemoglobin 33 pg (28-32); Mean Corpuscular Volume 102 fl (84-94); Platelet Count 623 K/mm3 (140-440); Red Blood Count 2.69 M/mm3 (3.65-5.03); White Blood Count 15.3 K/mm3 (4.5-11.0)
[2017-09-17 08:16] LABS: Albumin 3.2 g/dL (3.9-5); Albumin/Globulin Ratio 0.9 %; Bilirubin,Total 0.3 mg/dL (0.1-1.2); Calcium 7.6 mg/dL (8.4-10.2); Chloride 93.9 mmol/L (98-107); Potassium 5.2 mmol/L (3.6-5.0); Total Protein 6.7 g/dL (6.3-8.2)
--- NOTE | 2017-09-17 11:37 | Emergency Department Report ---
HPI - General Chief Complaint: Medical Clearance Time Seen by Provider: 09/17/17 11:25 - HPI HPI: This is a 31-year-old male presents to the emergency department from home with complaint that he needs peritoneal dialysis. The patient had a peritoneal dialysis catheter placed 5 days ago at [facility]. He says that they came to his home and tested out the dialysis catheter but did not actually do a full test and that they "only drained without using dwell. " He says that it took a long time for the catheter to be cleared of blood. He also says that he does not have any equipment at home to do peritoneal dialysis and therefore has not had any dialysis since . He has a past medical history of diabetes, hypertension and now has the end-stage renal disease on peritoneal dialysis. He has not had a primary care physician. His duct cleaner is Dr. Granados. ED Past Medical Hx - Past Medical History Hx Hypertension: Yes Hx Congestive Heart Failure: No Hx Diabetes: Yes Hx Renal Disease: Yes (Peritoneal dialysis) Hx Kidney Stones: No Hx Psychiatric Treatment: No Hx Asthma: No Hx COPD: No Hx HIV: No Additional medical history: Stopped Hemodialysis - Surgical History Additional Surgical History: knee surgery, tonsils removed, vas cath, graft in rt. leg, PD catheter placed in stomach - Social History Smoking Status: Never Smoker Substance Use Type: None - Medications Home Medications: Home Medications Medication Instructions Recorded Confirmed Last Taken Type Insulin Regular, Human [Novolin R] 12 - 30 units SC TIDWM #1 vial 08/20/1709/17 Unknown Rx NIFEdipine XL [Procardia Xl] 60 mg PO QDAY #30 tablet 08/20/17 09/17/17 Unknown Rx Valsartan [Diovan] 320 mg PO QDAY #30 tablet 08/20/17 09/17/17 Unknown Rx ED Review of Systems ROS: Stated complaint: NEED DIALYSIS Other details as noted in HPI Comment: All other systems reviewed and negative Constitutional: denies: chills, fever Eyes: denies: eye pain, eye discharge, vision change ENT: denies: ear pain, throat pain Respiratory: denies: cough, wheezing Cardiovascular: denies: chest pain, palpitations Gastrointestinal: denies: nausea, vomiting Genitourinary: denies: urgency, dysuria Musculoskeletal: denies: back pain, joint swelling, arthralgia Skin: denies: rash, lesions Neurological: denies: headache, weakness, paresthesias Physical Exam - Physical Exam Vital Signs: Vital Signs 09/17/17 09/17/17 07:10 11:04 Temperature 97.7 F 97.8 F Pulse Rate 116 H 113 H Respiratory 18 20 Rate Blood Pressure 170/112 Blood Pressure 158/110 [Right] O2 Sat by Pulse 100 100 Oximetry Physical Exam: GENERAL: The patient is well-developed well-nourished. HENT: Normocephalic. Atraumatic. Patient has moist mucous membranes. EYES: Extraocular motions are intact. Pupils equal reactive to light bilaterally. NECK: Supple. Trachea is midline. CHEST/LUNGS: Coarse breath sounds at the chest. No tachypnea or accessory muscle use.. There is no respiratory distress noted. HEART/CARDIOVASCULAR: Regular. There is mild tachycardia. There is no murmur. ABDOMEN: Abdomen is soft, nontender. Patient has normal bowel sounds. There is no abdominal distention. Peritoneal dialysis catheter seen in the abdomen but does not appear to have any surrounding infection. SKIN: Skin is warm and dry. NEURO: The patient is awake, alert, and oriented. The patient is cooperative. The patient has no focal neurologic deficits. The patient has normal speech. MUSCULOSKELETAL: There is no tenderness or deformity. There is no evidence of acute injury. ED Course Vital Signs 09/17/17 09/17/17 07:10 11:04 Temperature 97.7 F 97.8 F Pulse Rate 116 H 113 H Respiratory 18 20 Rate Blood Pressure 170/112 Blood Pressure 158/110 [Right] O2 Sat by Pulse 100 100 Oximetry - Consultations Consultation #1: 09/17/17 11:[address] Granados, the patient's duct cleaner, who will assess the patient for dialysis and would like the patient admitted to the hospitalist service. ED Medical Decision Making - Lab Data Result diagrams: 09/17/17 07:34 09/17/17 07:34 - Medical Decision Making Patient is here for peritoneal dialysis as he is unable to do it at home even though he just had the catheter placed. Nephrology says they will use his indwelling right leg graft for now and will evaluate the peritoneal catheter. He shows the renal insufficiency but no hyperkalemia. Nephrology is aware. Admitted by Dr. Grover. Critical Care Time: No Critical care attestation.: If time is entered above; I have spent that time in minutes in the direct care of this critically ill patient, excluding procedure time. ED Disposition Clinical Impression: End-stage renal disease needing dialysis Leukocytosis Qualifiers: Leukocytosis type: unspecified Qualified Code(s): D72.829 - Elevated white blood cell count, unspecified Volume overload Qualifiers: Hypervolemia type: unspecified Qualified Code(s): E87.70 - Fluid overload, unspecified Hypertension Qualifiers: Hypertension type: essential hypertension Qualified Code(s): I10 - Essential ( primary) hypertension Anemia Qualifiers: Anemia type: unspecified type Qualified Code(s): D64.9 - Anemia, unspecified Disposition: DC-09 OP ADMIT IP TO THIS HOSP Is pt being admited?: Yes Condition: Stable Time of Disposition: 13:00
[2017-09-17] MEDS ORDERED: PERCOCET 5/325 PO PRN (12:44)
[2017-09-17] MEDS ORDERED: TYLENOL PO PRN (12:44)
[2017-09-17] MEDS ORDERED: ZOFRAN IV PRN (12:44)
[2017-09-17] MEDS ORDERED: PROVENTIL IH PRN (12:44)
[2017-09-17] MEDS ORDERED: DULCOLAX PR PRN (12:44)
[2017-09-17] MEDS ORDERED: D50W (25GM) Syringe IV PRN (12:54)
--- NOTE | 2017-09-17 13:03 | History and Physical Report ---
History of Present Illness Date of examination: 09/17/17 Date of admission: 09/17/17 11:57 Chief complaint: Needs dialysis History of present illness: This is a 31-year-old male presents to the emergency department from home with complaint that he needs peritoneal dialysis. The patient had a peritoneal dialysis catheter placed 5 days ago at [facility]. He says that they came to his home and tested out the dialysis catheter but did not actually do a full test and that they "only drained without using dwell. " He says that it took a long time for the catheter to be cleared of blood. He also says that he does not have any equipment at home to do peritoneal dialysis and therefore has not had any dialysis since . He has a past medical history of diabetes, hypertension and now has the end-stage renal disease on peritoneal dialysis. He has not had a primary care physician. 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 Granados Past History Past Medical History: diabetes, ESRD, heart failure, hypertension, other ( schizophrenia) Past Surgical History: tonsillectomy, Other (vas cath placement, knee surgery, PD catheter placed in stomach, graft in R leg) Social history: single Family history: CAD, diabetes, hypertension Medications and Allergies Allergies Allergy/AdvReac Type Severity Reaction Status Date / Time Penicillins Allergy Unknown Verified 09/17/17 07:10 Home Medications Medication Instructions Recorded Confirmed Last Taken Type Insulin Regular, Human [Novolin R] 12 - 30 units SC TIDWM #1 vial 08/20/1708/23 Unknown Rx NIFEdipine XL [Procardia Xl] 60 mg PO QDAY #30 tablet 08/20/17 08/23/17 Unknown Rx Valsartan [Diovan] 320 mg PO QDAY #30 tablet 08/20/17 08/23/17 Unknown Rx Active Meds: Active Medications Acetaminophen (Tylenol) 650 mg PO Q4H PRN PRN Reason: Pain MILD(1-3)/Fever >100.5/RUANO Albuterol (Proventil) 2.5 mg IH Q4HRT PRN PRN Reason: Shortness Of Breath Bisacodyl (Dulcolax) 10 mg ND QDAY PRN PRN Reason: Constipation unrelieved by MOM Heparin Sodium (Porcine) (Heparin) 5,000 unit SUB-Q Q8HR SOFYA Heparin Sodium (Porcine) (Heparin) 5,000 unit SUB-Q Q8HR SOFYA Ondansetron HCl (Zofran) 4 mg IV Q8H PRN PRN Reason: N/V unrelieved by Reglan Oxycodone/Acetaminophen (Percocet 5/325) 1 tab PO Q6H PRN PRN Reason: Pain, Moderate (4-6) Zolpidem Tartrate (Ambien) 5 mg PO QHS PRN PRN Reason: Insomnia Review of Systems Constitutional: no weight loss, no fever, no chills Ears, nose, mouth and throat: no ear pain, no decreased hearing, no nasal congestion, no sinus pain Cardiovascular: no chest pain, no palpitations, no syncope Gastrointestinal: no abdominal pain, no nausea, no vomiting Genitourinary Male: no hematuria, no urinary frequency, no nocturia Musculoskeletal: no shooting arm pain, no low back pain, no shooting leg pain Integumentary: no rash, no redness, no sores Neurological: no weakness, no numbness, no seizures, no headaches Psychiatric: no sleep disturbances Endocrine: no cold intolerance, no excessive thirst, no polyuria Exam - Constitutional Vitals: Temp Pulse Resp BP Pulse Ox 97.8 F 113 H 20 158/110 100 09/17/17 11:04 09/17/17 11:04 09/17/17 11:04 09/17/17 11:04 09/17/17 11:04 General appearance: Present: no acute distress - EENT Eyes: Present: PERRL, EOM intact ENT: hearing intact, clear oral mucosa - Neck Neck: Present: supple, normal ROM - Respiratory Respiratory effort: normal Respiratory: bilateral: CTA - Cardiovascular Heart Sounds: Present: S1 & S2. Absent: rub, click - Extremities Extremities: pulses symmetrical, No edema Peripheral Pulses: within normal limits - Abdominal General gastrointestinal: Present: soft, non-tender, non-distended, normal bowel sounds, other (PD cath) Male genitourinary: Present: deferred - Rectal Rectal Exam: deferred - Integumentary Integumentary: Present: clear, warm, dry - Musculoskeletal Musculoskeletal: strength equal bilaterally - Psychiatric Psychiatric: appropriate mood/affect, intact judgment & insight - Neurologic Neurologic: CNII-XII intact, moves all extremities - Allied Health Allied health notes reviewed: nursing Results - Labs CBC & Chem 7: 09/17/17 07:34 09/17/17 07:34 Labs: Laboratory Last Values WBC 15.3 K/mm3 (4.5-11.0) H 09/17/17 07:34 RBC 2.69 M/mm3 (3.65-5.03) L 09/17/17 07:34 Hgb 8.8 gm/dl (11.8-15.2) L 09/17/17 07:34 Hct 27.5 % (35.5-45.6) L 09/17/17 07:34 MCV 102 fl (84-94) H 09/17/17 07:34 MCH 33 pg (28-32) H 09/17/17 07:34 MCHC 32 % (32-34) 09/17/17 07:34 RDW 18.0 % (13.2-15.2) H 09/17/17 07:34 Plt Count 623 K/mm3 (140-440) H 09/17/17 07:34 Lymph % (Auto) 6.7 % (13.4-35.0) L 09/17/17 07:34 [place] % (Auto) 7.6 % (0.0-7.3) H 09/17/17 07:34 Eos % (Auto) 2.5 % (0.0-4.3) 09/17/17 07:34 Baso % (Auto) 0.8 % (0.0-1.8) 09/17/17 07:34 Lymph # 1.0 K/mm3 (1.2-5.4) L 09/17/17 07:34 [place] # 1.2 K/mm3 (0.0-0.8) H 09/17/17 07:34 Eos # 0.4 K/mm3 (0.0-0.4) 09/17/17 07:34 Baso # 0.1 K/mm3 (0.0-0.1) 09/17/17 07:34 Seg Neutrophils % 82.4 % (40.0-70.0) H 09/17/17 07:34 Seg Neutrophils # 12.6 K/mm3 (1.8-7.7) H 09/17/17 07:34 Sodium 139 mmol/L (137-145) 09/17/17 07:34 Potassium 5.2 mmol/L (3.6-5.0) H 09/17/17 07:34 Chloride 93.9 mmol/L (98-107) L 09/17/17 07:34 Carbon Dioxide 19 mmol/L (22-30) L 09/17/17 07:34 Anion Gap 31 mmol/L 09/17/17 07:34 BUN 72 mg/dL (9-20) H 09/17/17 07:34 Creatinine 10.8 mg/dL (0.8-1.5) H 09/17/17 07:34 Estimated GFR 7 ml/min 09/17/17 07:34 BUN/Creatinine Ratio 7 % 09/17/17 07:34 Glucose 147 mg/dL (75-100) H 09/17/17 07:34 Calcium 7.6 mg/dL (8.4-10.2) L 09/17/17 07:34 Total Bilirubin 0.30 mg/dL (0.1-1.2) 09/17/17 07:34 AST 33 units/L (5-40) 09/17/17 07:34 ALT 22 units/L (7-56) 09/17/17 07:34 Alkaline Phosphatase 121 units/L (35-129) 09/17/17 07:34 Total Protein 6.7 g/dL (6.3-8.2) 09/17/17 07:34 Albumin 3.2 g/dL (3.9-5) L 09/17/17 07:34 Albumin/Globulin Ratio 0.9 % 09/17/17 07:34 Lipase 3 units/L (13-60) L 09/17/17 07:34 Assessment and Plan Advance Directives: Yes VTE prophylaxis?: Chemical - Patient Problems (1) Anemia Current Visit: Yes Status: Chronic Qualifiers: Anemia type: unspecified type Qualified Code(s): D64.9 - Anemia, unspecified (2) End-stage renal disease needing dialysis Current Visit: Yes Status: Chronic Plan to address problem: PD, Nephrology Following (3) Hypertension Current Visit: Yes Status: Acute Qualifiers: Hypertension type: essential hypertension Qualified Code(s): I10 - Essential (primary) hypertension Plan to address problem: Resume home medications (4) Leukocytosis Current Visit: Yes Status: Acute Qualifiers: Leukocytosis type: unspecified Qualified Code(s): D72.829 - Elevated white blood cell count, unspecified (5) Volume overload Current Visit: Yes Status: Acute Qualifiers: Hypervolemia type: unspecified Qualified Code(s): E87.70 - Fluid overload, unspecified Plan to address problem: Peritoneal Dialysis, Fluid restriction (6) CHF (congestive heart failure) Current Visit: No Status: Acute Qualifiers: Congestive heart failure type: diastolic Congestive heart failure chronicity: acute on chronic Qualified Code(s): I50.33 - Acute on chronic diastolic (congestive) heart failure Plan to address problem: Echo (7) Diabetes Current Visit: No Status: Acute Plan to address problem: SSI (8) SIRS (systemic inflammatory response syndrome) Current Visit: Yes Status: Acute Plan to address problem: Blood cultures, Empiric abx
[2017-09-17] MEDS ORDERED: HEPARIN SUB-Q SCH (14:00)
--- NOTE | 2017-09-17 14:12 | Consultation ---
History of Present Illness - Reason for Consult Consult date: 09/17/17 end stage renal disease, hyperkalemia, metabolic acidosis, other (Anemia) - History of Present Illness The patient is a 31 YO AAM with history significant for HTN, Type 1 DM, Diastolic CHF(EF 55%), ESRD on HD(M,W,F), s/p PD catheter placement, Anemia, Schizophrenia and medical non-compliance presented to ED with bilateral leg swelling and shortness of breath. Per patient he is 10 kgs above his DW. He was last dialyzed on 09/11/17 at [facility] in [place]. He had PD catheter placed on 09/12/17 at [facility]. He had blood stained drainage when they flushed the catheter yesterday. Patient denies any abd pain, fever, sick contact, rash, jaundice or weakness. His primary [employer] is . Labs from today is significant for K 5.2, Bicarb 19, Hb 8.8 and WBC 15.3. Past History Past Medical History: diabetes, dialysis, ESRD, hypertension, hyperlipidemia Medications and Allergies Allergies Allergy/AdvReac Type Severity Reaction Status Date / Time Penicillins Allergy Unknown Verified 09/17/17 07:10 Home Medications Medication Instructions Recorded Confirmed Last Taken Type Insulin Regular, Human [Novolin R] 12 - 30 units SC TIDWM #1 vial 08/20/1709/17 Unknown Rx NIFEdipine XL [Procardia Xl] 60 mg PO QDAY #30 tablet 08/20/17 09/17/17 Unknown Rx Valsartan [Diovan] 320 mg PO QDAY #30 tablet 08/20/17 09/17/17 Unknown Rx Active Meds: Active Medications Acetaminophen (Tylenol) 650 mg PO Q4H PRN PRN Reason: Pain MILD(1-3)/Fever >100.5/RUANO Albuterol (Proventil) 2.5 mg IH Q4HRT PRN PRN Reason: Shortness Of Breath Bisacodyl (Dulcolax) 10 mg SD QDAY PRN PRN Reason: Constipation unrelieved by MOM Dextrose (D50w (25gm) Syringe) 50 ml IV PRN PRN PRN Reason: Hypoglycemia Heparin Sodium (Porcine) (Heparin) 5,000 unit SUB-Q Q8HR SOFYA Insulin Aspart (Novolog) 0 units SUB-Q ACHS SOFYA PRN Reason: Protocol Ondansetron HCl (Zofran) 4 mg IV Q8H PRN PRN Reason: N/V unrelieved by Reglan Oxycodone/Acetaminophen (Percocet 5/325) 1 tab PO Q6H PRN PRN Reason: Pain, Moderate (4-6) Zolpidem Tartrate (Ambien) 5 mg PO QHS PRN PRN Reason: Insomnia Review of Systems Constitutional: no weight loss, no weight gain, no fever, no chills, no anorexia , no weakness Ears, nose, mouth and throat: no epistaxis Cardiovascular: orthopnea, edema, shortness of breath, dyspnea on exertion, high blood pressure, leg edema, no chest pain, no palpitations, no syncope, no lightheadedness Respiratory: shortness of breath, dyspnea on exertion, no cough, no hemoptysis Gastrointestinal: no abdominal pain, no nausea, no vomiting, no melena Genitourinary Male: no dysuria, no hematuria Rectal: no bleeding Musculoskeletal: no redness of joints, no hot joints Integumentary: no wounds, no jaundice Neurological: no syncope, no vertigo, no headaches, no convulsions, no change in speech, no change in mentation Psychiatric: no memory loss, no disorientation Endocrine: weight change Exam - Vital Signs Vital signs: Vital Signs Temp Pulse Resp BP Pulse Ox 97.7 F 116 H 18 170/112 100 09/17/17 07:10 09/17/17 07:10 09/17/17 07:10 09/17/17 07:10 09/17/17 07:10 - General Appearance General appearance: well-developed, well-nourished, appears stated age, other ( no distress) EENT: ATNC, PERRL, mucous membranes moist, hearing intact, vision intact Neck: Present: neck supple, trachea midline Respiratory: Clear to Ascultation, Decreased Breath Sounds (right base) Heart: regular, S1S2, no murmurs Gastrointestinal: Present: normoactive bowel sounds, other (PD catheter, exit site looks clean). Absent: tenderness, distended Integumentary: no rash, warm and dry Neurologic: no focal deficit, no asterixis, alert and oriented x3, CN 3-12 intact Musculoskeletal: Present: other (2+ pitting edema of both LEs) Psychiatric: mood/affect appropriate, cooperative Results - Lab Results 09/17/17 07:34 12 07:34 Most recent lab results Calcium 7.6 mg/dL (8.4-10.2) L 09/17/17 07:34 Assessment and Plan 1. Volume overload: Patient is about 10 kgs above his dry weight. Hemodialysis today with 4 Lts of UF as tolerated. 2. Hyperkalemia: HD today. 3. Metabolic acidosis: HD today. 4. ESRD: Hemodialysis three times a week. 5. Anemia: Epogen. 6. Hypertension. 7. Medical non-compliance. Compliance encouraged.
[2017-09-17] MEDS ORDERED: NACL 0.9% 100 ML IV PRN (14:27)
[2017-09-17] MEDS: NOVOLOG SUB-Q SCH ×2 (17:53→23:42)
[2017-09-17] MEDS: HEPARIN SUB-Q SCH ×2 (17:53→23:42)
[2017-09-17] MEDS ORDERED: AMBIEN PO PRN (22:00)
[2017-09-18] MEDS: HEPARIN SUB-Q SCH ×2 (05:45→19:14)
[2017-09-18] MEDS: NOVOLOG SUB-Q SCH ×3 (07:32→19:14)
--- NOTE | 2017-09-18 09:14 | Progress Note ---
Assessment and Plan 1. Volume overload: Patient is about 10 kgs above his dry weight. He had about 4 Lts removed with hemodialysis yesterday. HD today with 4 Lts of UF as tolerated. 2. Hyperkalemia: Improved. 3. Metabolic acidosis: HD today. 4. ESRD: Hemodialysis three times a week. Will flush PD catheter today. 5. Anemia: Epogen. 6. Hypertension. 7. Medical non-compliance. Compliance encouraged. Subjective Date of service: 09/18/17 Interval history: Patient is doing ok. Objective - Vital Signs Vital signs: Vital Signs - 12hr 09/17/17 09/17/17 09/17/17 21:15 21:30 21:45 Temperature Pulse Rate 105 H 106 H 103 H Respiratory Rate Blood Pressure 187/112 195/113 182/108 O2 Sat by Pulse Oximetry 09/17/17 09/17/17 09/18/17 22:00 22:20 01:24 Temperature 98.3 F Pulse Rate 111 H 111 H Respiratory 20 Rate Blood Pressure 174/93 207/123 157/82 O2 Sat by Pulse Oximetry 09/18/17 08:12 Temperature 98.2 F Pulse Rate 105 H Respiratory 18 Rate Blood Pressure 177/108 O2 Sat by Pulse 90 Oximetry - General Appearance General appearance: well-developed, well-nourished, appears stated age, other ( no distress) EENT: ATNC, PERRL, hearing intact, vision intact Neck: supple Respiratory: Present: Clear to Ascultation, Decreased Breath Sounds (right base) Cardiology: regular, S1S2, no murmurs Gastrointestinal: normoactive bowel sounds, no tenderness, no distended, other ( PD catheter noted) Integumentary: no rash, warm and dry Neurologic: no focal deficit, no asterixis, alert and oriented x3 Musculoskeletal: other (1+ edema of both LEs noted, right thigh AVG) Psychiatric: mood/affect appropriate - Lab 09/18/17 16:15 09/18/17 16:15 Most recent lab results Calcium 7.6 mg/dL (8.4-10.2) L 09/17/17 07:34
[2017-09-18] MEDS ORDERED: NACL 0.9% 100 ML IV PRN (09:48)
[2017-09-18] MEDS ORDERED: DIOVAN PO SCH (10:00)
[2017-09-18] MEDS ORDERED: PROCARDIA XL PO SCH (10:00)
[2017-09-18] MEDS ORDERED: NON-FORMULARY (Valsartan [Diovan] 320 MG) PO SCH (10:00)
[2017-09-18] MEDS ORDERED: DIANEAL LOW CALCIUM W/2.5% DEXTROSE IP ONE (11:30)
--- NOTE | 2017-09-18 15:26 | Progress Note ---
<MAIRA GOSS - Last Filed: 09/18/17 15:21> Assessment and Plan Assessment and plan: This is a 31-year-old male presents to the emergency department from home with complaint that he needs peritoneal dialysis. The patient had a peritoneal dialysis catheter placed 5 days ago at [facility]. He says that they came to his home and tested out the dialysis catheter but did not actually do a full test and that they "only drained without using dwell. " He says that it took a long time for the catheter to be cleared of blood. He also says that he does not have any equipment at home to do peritoneal dialysis and therefore has not had any dialysis since . He has a past medical history of diabetes, hypertension and now has the end-stage renal disease on peritoneal dialysis. He has not had a primary care physician. 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 Anemia Likely of Chronic Disease Unable to assess, pt refused venipuncture Recommend Procrit with Dialysis End-stage renal disease needing dialysis S/p HD yesterday Nephrology Following Hypertension Resume home medications Patient refused meds Leukocytosis Unable to assess, pt refused venipuncture and blood cultures Volume overload HD, Fluid restriction CHF (congestive heart failure) Pt refused meds Diabetes Pt refused accu checks SSI SIRS (systemic inflammatory response syndrome) Blood cultures, Empiric abx, Pt refused - Patient Problems (1) Anemia Status: Chronic QualifierTitle: Anemia type: unspecified type Qualified Code(s): D64.9 - Anemia, unspecified (2) End-stage renal disease needing dialysis Status: Chronic (3) Hypertension Status: Acute QualifierTitle: Hypertension type: essential hypertension Qualified Code( s): I10 - Essential (primary) hypertension (4) Leukocytosis Status: Acute QualifierTitle: Leukocytosis type: unspecified Qualified Code(s): D72.829 - Elevated white blood cell count, unspecified (5) Volume overload Status: Acute QualifierTitle: Hypervolemia type: unspecified Qualified Code(s): E87.70 - Fluid overload, unspecified (6) CHF (congestive heart failure) Status: Acute QualifierTitle: Congestive heart failure type: diastolic Congestive heart failure chronicity: acute on chronic Qualified Code(s): I50.33 - Acute on chronic diastolic (congestive) heart failure (7) Diabetes Status: Acute (8) SIRS (systemic inflammatory response syndrome) Status: Acute History Interval history: Patient alert awake and resting in bed. Breathing improved, denies SOB, CP, [place] Hospitalist Physical - Constitutional Vitals: Temp Pulse Resp BP Pulse Ox 98.2 F 105 H 18 177/108 90 09/18/17 08:12 09/18/17 08:12 09/18/17 08:12 09/18/17 08:12 09/18/17 08:12 General appearance: Present: no acute distress - EENT Eyes: Present: PERRL, EOM intact ENT: hearing intact, clear oral mucosa, dentition normal - Neck Neck: Present: supple, normal ROM - Respiratory Respiratory: bilateral: CTA - Cardiovascular Rhythm: regular Heart Sounds: Present: S1 & S2 - Extremities Extremities: no ischemia, No edema Peripheral Pulses: within normal limits - Abdominal General gastrointestinal: deferred - Integumentary Integumentary: Present: clear, warm, dry - Psychiatric Psychiatric: agitated - Neurologic Neurologic: CNII-XII intact, moves all extremities - Allied Health Allied health notes reviewed: nursing Results - Labs CBC & Chem 7: 09/17/17 07:34 09/17/17 07:34 Labs: Laboratory Last Values WBC 15.3 K/mm3 (4.5-11.0) H 09/17/17 07:34 RBC 2.69 M/mm3 (3.65-5.03) L 09/17/17 07:34 Hgb 8.8 gm/dl (11.8-15.2) L 09/17/17 07:34 Hct 27.5 % (35.5-45.6) L 09/17/17 07:34 MCV 102 fl (84-94) H 09/17/17 07:34 MCH 33 pg (28-32) H 09/17/17 07:34 MCHC 32 % (32-34) 09/17/17 07:34 RDW 18.0 % (13.2-15.2) H 09/17/17 07:34 Plt Count 623 K/mm3 (140-440) H 09/17/17 07:34 Lymph % (Auto) 6.7 % (13.4-35.0) L 09/17/17 07:34 Griggs % (Auto) 7.6 % (0.0-7.3) H 09/17/17 07:34 Eos % (Auto) 2.5 % (0.0-4.3) 09/17/17 07:34 Baso % (Auto) 0.8 % (0.0-1.8) 09/17/17 07:34 Lymph # 1.0 K/mm3 (1.2-5.4) L 09/17/17 07:34 Griggs # 1.2 K/mm3 (0.0-0.8) H 09/17/17 07:34 Eos # 0.4 K/mm3 (0.0-0.4) 09/17/17 07:34 Baso # 0.1 K/mm3 (0.0-0.1) 09/17/17 07:34 Seg Neutrophils % 82.4 % (40.0-70.0) H 09/17/17 07:34 Seg Neutrophils # 12.6 K/mm3 (1.8-7.7) H 09/17/17 07:34 Sodium 139 mmol/L (137-145) 09/17/17 07:34 Potassium 5.2 mmol/L (3.6-5.0) H 09/17/17 07:34 Chloride 93.9 mmol/L (98-107) L 09/17/17 07:34 Carbon Dioxide 19 mmol/L (22-30) L 09/17/17 07:34 Anion Gap 31 mmol/L 09/17/17 07:34 BUN 72 mg/dL (9-20) H 09/17/17 07:34 Creatinine 10.8 mg/dL (0.8-1.5) H 09/17/17 07:34 Estimated GFR 7 ml/min 09/17/17 07:34 BUN/Creatinine Ratio 7 % 09/17/17 07:34 Glucose 147 mg/dL (75-100) H 09/17/17 07:34 POC Glucose 83 (70-105) 09/17/17 13:15 Hemoglobin A1c 6.7 % (4-6) H 09/17/17 07:34 Calcium 7.6 mg/dL (8.4-10.2) L 09/17/17 07:34 Total Bilirubin 0.30 mg/dL (0.1-1.2) 09/17/17 07:34 AST 33 units/L (5-40) 09/17/17 07:34 ALT 22 units/L (7-56) 09/17/17 07:34 Alkaline Phosphatase 121 units/L (35-129) 09/17/17 07:34 Total Protein 6.7 g/dL (6.3-8.2) 09/17/17 07:34 Albumin 3.2 g/dL (3.9-5) L 09/17/17 07:34 Albumin/Globulin Ratio 0.9 % 09/17/17 07:34 Lipase 3 units/L (13-60) L 09/17/17 07:34 <JOSEE EDWARD R - Last Filed: 09/19/17 15:02> Assessment and Plan Assessment and plan: pt left AMA Hospitalist Physical - Constitutional Vitals: Temp Pulse Resp BP Pulse Ox 98.0 F 110 H 18 172/116 90 09/18/17 19:50 09/18/17 19:50 09/18/17 19:50 09/18/17 19:50 09/18/17 08:12 Results - Labs CBC & Chem 7: 09/18/17 16:15 09/18/17 16:15 Labs: Laboratory Last Values WBC 14.9 K/mm3 (4.5-11.0) H 09/18/17 16:15 RBC 2.92 M/mm3 (3.65-5.03) L 09/18/17 16:15 Hgb 9.3 gm/dl (11.8-15.2) L 09/18/17 16:15 Hct 29.5 % (35.5-45.6) L 09/18/17 16:15 MCV 101 fl (84-94) H 09/18/17 16:15 MCH 32 pg (28-32) 09/18/17 16:15 MCHC 32 % (32-34) 09/18/17 16:15 RDW 18.3 % (13.2-15.2) H 09/18/17 16:15 Plt Count 714 K/mm3 (140-440) H 09/18/17 16:15 Lymph % (Auto) 11.3 % (13.4-35.0) L 09/18/17 16:15 Griggs % (Auto) 7.1 % (0.0-7.3) 09/18/17 16:15 Eos % (Auto) 2.4 % (0.0-4.3) 09/18/17 16:15 Baso % (Auto) 1.2 % (0.0-1.8) 09/18/17 16:15 Lymph # 1.7 K/mm3 (1.2-5.4) 09/18/17 16:15 Griggs # 1.1 K/mm3 (0.0-0.8) H 09/18/17 16:15 Eos # 0.4 K/mm3 (0.0-0.4) 09/18/17 16:15 Baso # 0.2 K/mm3 (0.0-0.1) H 09/18/17 16:15 Seg Neutrophils % 78.0 % (40.0-70.0) H 09/18/17 16:15 Seg Neutrophils # 11.6 K/mm3 (1.8-7.7) H 09/18/17 16:15 Sodium 135 mmol/L (137-145) L 09/18/17 16:15 Potassium 4.7 mmol/L (3.6-5.0) 09/18/17 16:15 Chloride 91.3 mmol/L (98-107) L 09/18/17 16:15 Carbon Dioxide 19 mmol/L (22-30) L 09/18/17 16:15 Anion Gap 29 mmol/L 09/18/17 16:15 BUN 53 mg/dL (9-20) H 09/18/17 16:15 Creatinine 8.3 mg/dL (0.8-1.5) H 09/18/17 16:15 Estimated GFR 9 ml/min 09/18/17 16:15 BUN/Creatinine Ratio 6 % 09/18/17 16:15 Glucose 54 mg/dL (75-100) L 09/18/17 16:15 POC Glucose 83 (70-105) 09/17/17 13:15 Hemoglobin A1c 6.7 % (4-6) H 09/17/17 07:34 Calcium 8.1 mg/dL (8.4-10.2) L 09/18/17 16:15 Total Bilirubin 0.30 mg/dL (0.1-1.2) 09/18/17 16:15 AST 28 units/L (5-40) 09/18/17 16:15 ALT 26 units/L (7-56) 09/18/17 16:15 Alkaline Phosphatase 142 units/L (35-129) H 09/18/17 16:15 Total Protein 6.9 g/dL (6.3-8.2) 09/18/17 16:15 Albumin 3.1 g/dL (3.9-5) L 09/18/17 16:15 Albumin/Globulin Ratio 0.8 % 09/18/17 16:15 Lipase 3 units/L (13-60) L 09/17/17 07:34
[2017-09-18 16:38] LABS: Basophils % (Auto) 1.2 % (0.0-1.8); Eosinophils % (Auto) 2.4 % (0.0-4.3); Hematocrit 29.5 % (35.5-45.6); Hemoglobin 9.3 gm/dl (11.8-15.2); Mean Corpuscular HGB Conc 32 % (32-34); Mean Corpuscular Hemoglobin 32 pg (28-32); Mean Corpuscular Volume 101 fl (84-94); Platelet Count 714 K/mm3 (140-440); Red Blood Count 2.92 M/mm3 (3.65-5.03); Red Cell Distribution Width 18.3 % (13.2-15.2); White Blood Count 14.9 K/mm3 (4.5-11.0)
[2017-09-18 17:01] LABS: Albumin 3.1 g/dL (3.9-5); Albumin/Globulin Ratio 0.8 %; Bilirubin,Total 0.3 mg/dL (0.1-1.2); Calcium 8.1 mg/dL (8.4-10.2); Chloride 91.3 mmol/L (98-107); Potassium 4.7 mmol/L (3.6-5.0); Total Protein 6.9 g/dL (6.3-8.2)
[2017-09-18 21:16] VITALS: BP 172/116
[2017-09-18] MEDS ORDERED: NACL 0.9 (PRIMING MACHINE ONLY DIALYSIS) MC ONE (22:23)
--- NOTE | 2017-09-19 15:03 | Discharge Summary ---
Providers - Providers Date of Admission: 09/17/17 11:57 Date of discharge: 09/18/17 Attending physician: JOSEE EDWARD 09/17/17 11:58 Consult to Physician [CONS] Routine Consulting Provider: RAJAN PENA Reason For Exam: Dialysis Place consult to:: Dr Pena Notified:: Y Was contact made?: Yes If yes, spoke with:: Dr Pena Time called:: 11:59 Primary care physician: AZUL EDEN Hospitalization Condition: Stable Hospital course: LEFT AMA Disposition: DC-07 LEFT AGAINST MED ADVICE Core Measure Documentation - Palliative Care Palliative Care/ Comfort Measures: Not Applicable - Core Measures Any of the following diagnoses?: none - VTE Discharge Requirements Deep Vein Thrombosis/Pulmonary Embolism Present on Admission: No Has pt received <5 days of overlap therapy or INR<2.0: No Anticoagulant overlap therapy prescribed at discharge: No Contraindication No Overlap Therapy order at DC: Not Indicated Exam - Constitutional Vitals: Temp Pulse Resp BP Pulse Ox 98.0 F 110 H 18 172/116 90 09/18/17 19:50 09/18/17 19:50 09/18/17 19:50 09/18/17 19:50 09/18/17 08:12 Plan Follow up with: AZUL EDEN MD [Primary Care Provider] - 3-5 Days Forms: AMA Form
== END 2017-09-18 22:32 | disposition left against medical advice (07) | DRG 291 ==
LOC: ED 06:11 → 3A 11:57
PROVIDERS: ADMIT Internal Medicine; ATTEND Internal Medicine
PROC: 5A1D70Z Performance of Urinary Filtration, Intermittent, Less than 6 Hours Per Day (ICD-10-PCS; principal; 2017-09-17)
PROC: 5A1D70Z Performance of Urinary Filtration, Intermittent, Less than 6 Hours Per Day (ICD-10-PCS; 2017-09-18)
DX: I13.2 Hypertensive heart and chronic kidney disease with heart failure and with stage 5 chronic kidney disease, or end stage renal disease (principal); N18.6 End stage renal disease; I50.33 Acute on chronic diastolic (congestive) heart failure; R65.10 Systemic inflammatory response syndrome (SIRS) of non-infectious origin without acute organ dysfunction; E87.2 Acidosis; D64.9 Anemia, unspecified; E87.70 Fluid overload, unspecified; E87.5 Hyperkalemia; E11.22 Type 2 diabetes mellitus with diabetic chronic kidney disease; Z88.0 Allergy status to penicillin; F20.9 Schizophrenia, unspecified; Z82.49 Family history of ischemic heart disease and other diseases of the circulatory system; Z83.3 Family history of diabetes mellitus
CPT/HCPCS: 36415; 71020; 80048; 80053; 80061; 82962; 83036; 83690; 84484; 85025; 87040; 93005; 93010; 99285; J1644; J7030